=== PATIENT | female | born 1965 | race Caucasian/White ===

== ENCOUNTER → 2017-09-04 | Outpatient (REF) | payer OTHER ==
[~2017-09-04] MED LIST: ESC10 PO; LEVO1TAB27 PO; [UNRECOGNIZED DRUG - OTHER]
== END ==
LOC: ZZSENDIN 15:20
PROVIDERS: ATTEND Physician Assistant
DX: R19.7 Diarrhea, unspecified (principal)
CPT/HCPCS: 85651

== ENCOUNTER → 2017-10-22 | Outpatient (CLI) | payer OTHER ==
--- NOTE | 2017-10-22 20:24 | RADIOLOGY IMAGING REPORT ---
FACILITY: [facility] - [place] PATIENT NAME: Fabiana Alicea : 1965 MR: [id number] V: [id number] EXAM DATE: ORDERING PHYSICIAN: MARY DC TECHNOLOGIST: Location: [facility] - [place] Patient: Fabiana Alicea : 1965 Visit/Account:[id number] Date of Sevice: 10/22/2017 Technique: CHEST PA AND LAT HISTORY: Cough, history of smoking COMPARISON: None available Findings: The lungs are clear. No pleural effusion. There is pulmonary hyperexpansion. The cardiomed iastinal silhouette is unremarkable. Impression: 1. No acute cardiopulmonary process. 2. Pulmonary hyperexpansion. Report Dictated By: Solitario Jensen DO at 10/22/2017 8:18 PM Report E-Signed By: Solitario Jensen DO at 10/22/2017 8:20 PM WSN:[id number]
== END ==
LOC: RAD 16:39
PROVIDERS: ATTEND Physician Assistant
DX: R91.8 Other nonspecific abnormal finding of lung field (principal)
CPT/HCPCS: 71046

== ENCOUNTER → 2017-11-13 | Outpatient (CLI) | payer OTHER ==
[~2017-11-13] MED LIST changes: +BARIUM SULFATE 176 GM BTL PO ONE; +BARIUM SULFATE 340 GM POWD ONE
--- NOTE | 2017-11-13 17:10 | RADIOLOGY IMAGING REPORT ---
[place] [facility] [place] NAME: Fabiana Alicea : 1965 MR: [id number] V: [id number] EXAM DATE: ORDERING PHYSICIAN: KENDRA TRAN TECHNOLOGIST: Location: [facility] - [place] Patient: Fabiana Alicea : 1965 Visit/Account:[id number] Date of Sevice: 11/13/2017 Exam type: UPPER GI SERIES W/O AIR History: Her primary reflux x2 weeks Comparison: None. Findings: Double air-contrast upper GI series was performed with thick and thin barium and air crystals. There is a small hiatal hernia and mild narrowing at the lower esophageal sphincter. No mucosal erosions are identified. Very large amount of gastroesophageal reflux was observed. No abnormality of the st omach duodenal bulb or duodenal C-loop was seen the fluoroscopy dose area product was 540.05 micro-Gr ay per meter squared IMPRESSION: 1. Small hiatal hernia with a very large amount of gastroesophageal reflux. There is mild narrowing at the lower esophageal sphincter. No mucosal erosions are identified within the esophagus. The re mainder the upper GI series was unremarkable Report Dictated By: Nighat Kerns MD at 11/13/2017 5:04 PM Report E-Signed By: Nighat Kerns MD at 11/13/2017 5:06 PM WSN:[id number]
== END ==
LOC: RAD 07:03
PROVIDERS: ATTEND Surgery
DX: K44.9 Diaphragmatic hernia without obstruction or gangrene (principal); K21.9 Gastro-esophageal reflux disease without esophagitis; K22.2 Esophageal obstruction
CPT/HCPCS: 74240

== ENCOUNTER 2017-11-25 01:54 | Day surgery (SDC) | payer OTHER ==
[~2017-11-25] VITALS: Ht 160 cm; Wt 74.8 kg
[~2017-11-25 01:54] MED LIST changes: -BARIUM SULFATE 176 GM BTL PO ONE; -BARIUM SULFATE 340 GM POWD ONE; +LISI-362 PO; +PRAS25CA PO
[2017-11-25 07:45] VITALS: BP 125/88
[2017-11-25] MEDS ORDERED: LIDOCAINE MPF 1% 5 ML VIAL ONE (08:28)
[2017-11-25] MEDS ORDERED: PROPOFOL EMUL(*) 10MG/ML 20 ML 40 ML ONE (08:28)
[2017-11-25] MEDS ORDERED: KETAMINE HCL 200 MG/20 ML MDV ONE (08:34)
[2017-11-25] MEDS ORDERED: PROPOFOL EMUL(*) 10MG/ML 20 ML 20 ML ONE (09:12)
--- NOTE | 2017-11-25 09:27 | Post Operative Progress Note ---
Post Operative Progress Note Date: November 25, 2017 Time: 09:24 Surgeon: luís Anesthesia: dr li Pre-Op Diagnosis: abnormal ugi series and screening colonoscopy Post-Op Diagnosis: distal esophagitis, small hiatal hernia, doudenitis, colon polyp at 35 cm 2mm, 2 polyps at 20 cm 2 mm and 3 mm and 1 cm polyp at 10 cm Procedure(s): egd with balloon dilatation to 20 cm and colonoscopy with polypectomies KENDRA TRAN MD November 25, 2017 09:27
[2017-11-25 09:28] VITALS: BP 111/79
[2017-11-25] MEDS ORDERED: PANT40TA65 PO (09:32)
--- NOTE | 2017-11-25 09:34 | Short(Outpt) Discharge Summary ---
Discharge Summary Reason for Hosp/Final Diag: (1) Abnormal UGI series Hospital Course & Plan: distal esophagitis and duodenitis and small hiatal hernia with balloon dilation to 20 mm. (2) Encounter for screening colonoscopy Hospital Course & Plan: polyps at 35 cm , 20 cm and 10 cm. colonoscopy with polypectomy Departure Discharge to: Home Discharge Instructions Home Meds Reported Medications Prasterone (Dhea) (Dhea 25) 25 Mg Capsule, 25 MG PO DAILY 11/20/17 Lisinopril (LISINOPRIL) 10 Mg Tablet, 10 MG PO QDAY, TAB 11/20/17 [Bio Id Hormones] No Conflict Check, 0 Refills 07/26/09 Escitalopram Oxalate (Lexapro) 10 Mg Tablet, 20 MG PO DAILY 07/26/09 Diet: Regular Activity: As Tolerated KENDRA TRAN MD November 25, 2017 09:34
[2017-11-25] MEDS ORDERED: LIDOCAINE/SOD BICARB 8.4% SYR ID ONE (09:35)
[2017-11-25] MEDS ORDERED: NORMOSOL R SOLN(*) 1000 ML BAG 1,000 ML IV PRN (09:35)
[2017-11-25 10:00] VITALS: BP 118/69
[2017-11-25 10:34] VITALS: BP 137/89
--- NOTE | 2017-11-25 19:14 | OPERATIVE REPORT 1 ---
EVENT DATE: November 25, 2017 SURGEON: Kash Le MD ANESTHESIOLOGIST: Rigoberto Levin MD ANESTHESIA: Sedation. PREOPERATIVE DIAGNOSIS Screening colonoscopy. POSTOPERATIVE DIAGNOSIS Polyps at 35 cm, 20 cm, and 10 cm. PROCEDURE PERFORMED Colonoscopy with polypectomy. DESCRIPTION OF PROCEDURE Patient was placed in the left lateral decubitus position and given intravenous sedation. Rectal exam was unremarkable. Flexible colonoscope was inserted and advanced to the cecum. She had an excellent bowel prep. The ileocecal valve and base of the cecum were identified. Scope was slowly withdrawn. Care was taken to look behind the haustral folds. No abnormalities were noted in the cecum, right colon, transverse, or descending colon. At 35 cm, she had a 2 mm polyp. This was removed with a couple of bites with the cold cup. At 20 cm, she had two adjacent polyps, one 2 mm and one 3 mm. One was removed with the cold cup. The other was removed with a polypectomy snare cautery and retrieved. At 10 cm, she had a 1 cm pedunculated polyp. This was removed with the polypectomy snare cautery and retrieved. No bleeding was noted. Scope was retroflexed in the rectum. That appeared to be normal. [facility]
--- NOTE | 2017-11-25 19:26 | OPERATIVE REPORT 1 ---
EVENT DATE: November 25, 2017 SURGEON: Kash Le MD ANESTHESIOLOGIST: Rigoberto Levin MD ANESTHESIA: Sedation. PREOPERATIVE DIAGNOSIS Abnormal upper gastrointestinal series. POSTOPERATIVE DIAGNOSES 1. Small hiatal hernia. 2. Distal esophagitis. 3. Duodenitis. PROCEDURE PERFORMED Esophagogastroduodenoscopy with balloon dilatation to 20 mm. DESCRIPTION OF PROCEDURE The patient was placed in the left lateral decubitus position and given intravenous sedation. Flexible gastroscope was inserted and advanced without difficulty. Proximal esophagus appeared to be normal. At 34 cm was the GE junction. She had linear erosions noted. We were able to pass the scope through this relatively easily. There was additional esophageal narrowing on the upper GI series, but I could not get any significant resistance. It passed through the stomach, which was empty, through the pylorus and second and third portions of the duodenum which were normal. The duodenal bulb showed duodenitis with inflammation. I could not identify an ulcer. Pylorus was normal. Antrum was normal. Body of stomach was normal. Scope was retroflexed. There were a couple of small gastric fundic polyps, 2 to 3 mm in size, and a small hiatal hernia. Scope was then withdrawn. I did place the balloon across the distal esophagus and did progressive dilatation to 20 mm. We did not cause any significant bleeding, and so this was not very tight. Balloon was let down, and procedure was terminated. Patient tolerated the procedure well. No apparent complications. [facility]
== END 2017-11-25 10:50 | disposition home or self-care (01) ==
LOC: OR 01:54
PROVIDERS: ATTEND Surgery
DX: Z12.11 Encounter for screening for malignant neoplasm of colon (principal); D12.6 Benign neoplasm of colon, unspecified
CPT/HCPCS: 00811; 45380; 45385; 88305; J2001; J2704; J3490; C1726

== ENCOUNTER → 2018-07-22 | Outpatient (CLI) | payer OTHER ==
[~2018-07-22] MED LIST changes: +PANT40TA65 PO
[2018-07-22 15:24] LABS: PLATELET COUNT, AUTOMATED 265 K/uL (150-450)
--- NOTE | 2018-07-22 15:43 | EKG ---
FACILITY: [facility] PATIENT NAME: HELENA ALTAMIRANO : [id number] MR: [id number] V: [id number] EXAM DATE: ORDERING PHYSICIAN: LUL SHERWOOD TECHNOLOGIST: Test Reason : Pre-op Blood Pressure : / mmHG Vent. Rate : 083 BPM Atrial Rate : 083 BPM P-R Int : 166 ms QRS Dur : 082 ms QT Int : 352 ms P-R-T Axes : 042 075 050 degrees QTc Int : 413 ms Normal sinus rhythm Normal ECG No previous ECGs available Confirmed by LUL LUTHER ([id number]) on 07/24/2018 10:35:12 AM Referred By: Confirmed By:LUL LUTHER
== END ==
LOC: LAB 15:03
PROVIDERS: ATTEND Anesthesiology
DX: Z01.810 Encounter for preprocedural cardiovascular examination (principal); Z01.812 Encounter for preprocedural laboratory examination; H04.323 Acute dacryocystitis of bilateral lacrimal passages; H04.559 Acquired stenosis of unspecified nasolacrimal duct; H04.223 Epiphora due to insufficient drainage, bilateral; H53.8 Other visual disturbances
CPT/HCPCS: 36415; 82040; 82247; 82310; 82374; 82435; 82565; 82947; 84075; 84132; 84155; 84295; 84450; 84460; 84520; 85025; 93005

== ENCOUNTER → 2018-07-23 | Outpatient (REF) | payer OTHER | LOC: ZZSENDIN 12:00 | PROVIDERS: ATTEND Ophthalmology | DX: L82.1 Other seborrheic keratosis (principal); H04.553 Acquired stenosis of bilateral nasolacrimal duct | CPT/HCPCS: 88305 ==

== ENCOUNTER → 2018-11-19 | Outpatient (CLI) | payer OTHER ==
--- NOTE | 2018-11-19 15:52 | RADIOLOGY IMAGING REPORT ---
FACILITY: [facility] [place] PATIENT NAME: Fabiana Alicea : 1965 MR: [id number] V: [id number] EXAM DATE: ORDERING PHYSICIAN: MARY DC TECHNOLOGIST: Location: [facility] [place] Patient: Fabiana Alicea : 1965 Visit/Account:[id number] Date of Sevice: 11/19/2018 Clinical history: Osteoporosis screening. Comparison: 04/30/2012. LUMBAR SPINE: The bone mineral density (BMD) measured from L1-L4 correlates with a Z-score of -1.1 and a T-score of -1.4 which is osteopenia as defined by the World Health Organization. The corresponding risk of fra cture in the lumbar spine is increased 2-3 times compared with a young adult reference population. T his value has decreased by 2.2 % since the prior study. More than 5% change is considered significan t. HIP: Bone mineral density (BMD) measured in the left Total Hip region correlates with a Z-score of -1.7 an d a T-score of -2.0 which is osteopenia as defined by the World Health Organization. The correspondi ng risk of fracture in the hip is increased 4 times compared with a young adult reference population. This value has decreased by 8.7 % since the prior study. More than 5% change is considered signifi cant. Bone mineral density (BMD) measured in the left femoral neck correlates with a Z-score of -1.6 and a T-score of -2.3 which is osteopenia as defined by the World Health Organization. The corresponding r isk of fracture in the hip is increased 4-6 times compared with a young adult reference population. This value has decreased by 10.7 % since the prior study. More than 5% change is considered signific ant. Bone mineral density (BMD) measured in the left Femoral Neck region measures 0.721 g/cm2. IMPRESSION: 1. Lumbar spine: Osteopenia. There has been no significant change in the bone mineral density sinc e the previous exam. 2. Left total hip: Osteopenia. There has been significant decrease in the bone mineral density since the previous exam. 3. Left Femoral Neck: Osteopenia. There has been significant decrease in the bone mineral density si nce the previous exam 4. Left femoral neck bone mineral density: 0.721 g/cm2. The next DEXA scan of this patient should include the following sites: Lumbar spine and left hip. FRAX(R) WHO Fracture Risk Assessment Tool link: http://www.shef.ac.uk/FRAX/tool.jsp?locationValue=9 PLEASE NOTE: 1) The World Health Organization defines low BMD as follows: T-score Normal > -1 Osteopenia < -1 and > -2.5 Osteoporosis < -2.5 without fractures Established osteoporosis < -2.5 with fractures 2) In general, you may wish to consider: Diagnosis Treatment Follow-up DEXA Normal BMD Prevention 2-3 years Osteopenia Prevention/therapy 1-2 years Osteoporosis Therapy Yearly 3) Fracture risk estimated from the T-score is more accurate for vertebral fractures (often spontane ous) than for hip fractures Report Dictated By: Stacey Herrera MD at 11/19/2018 3:42 PM Report E-Signed By: Stacey Herrera MD at 11/19/2018 3:48 PM WSN:[id number]
--- NOTE | 2018-11-20 14:08 | RADIOLOGY IMAGING REPORT ---
FACILITY: [facility] - [place] PATIENT NAME: HELENA ALTAMIRANO : [id number] MR: [id number] V: [id number] EXAM DATE: [id number] ORDERING PHYSICIAN: MARY DC TECHNOLOGIST: Judith Gillespie PROCEDURE: BILATERAL DIGITAL SCREENING MAMMOGRAM WITH CAD ASSISTED INTERPRETATION & 3D TOMOSYNTHESIS REASON FOR STUDY: Screening FAMILY HISTORY OF BREAST CANCER: None BREAST PROCEDURES/TREATMENTS: Benign surgical biopsy in the Left breast COMPARISON: 05/22/16, 05/12/15, 04/30/12 VIEWS OBTAINED: Bilateral 2D & 3D full field CC & MLO projections BREAST DENSITY: The breasts are heterogeneously dense which can obscure small masses. MAMMOGRAM FINDINGS: There is a biopsy clip in the medial inferior portion of the Left breast in the middle third. The parenchymal pattern has remained stable allowing for difference in mammographic technique & patient positioning. IMPRESSION: BIRADS 1: Negative. DIAGNOSTIC CATEGORY 1--NEGATIVE. RECOMMENDATIONS: ROUTINE MAMMOGRAM AND CLINICAL EVALUATION. Dictated by: Nighat Kerns M.D. on 11/19/2018 at 16:36 Transcribed by: VALENTINA on 11/20/2018 at 13:21 Approved by: Nighat Kerns M.D. on 11/20/2018 at 14:06 [facility]
== END ==
LOC: MAMO 00:09
PROVIDERS: ATTEND Physician Assistant
DX: Z12.31 Encounter for screening mammogram for malignant neoplasm of breast (principal); M85.88 Other specified disorders of bone density and structure, other site; M85.852 Other specified disorders of bone density and structure, left thigh
CPT/HCPCS: 77063; 77067; 77080